=== PATIENT | female | born 1960 | race Caucasian/White ===

== ENCOUNTER → 2020-11-28 | Outpatient (CLI) | payer BC ==
[~2020-11-28] MED LIST: AMOCLA875 PO; CEPH500; IBUP800; TRAZ150T57 PO
== END ==
LOC: LAB SHORT 11:13 → LAB 11:13
DX: D48.5 Neoplasm of uncertain behavior of skin (principal)
CPT/HCPCS: 88305; 88313

== ENCOUNTER → 2020-11-28 | Outpatient (CLI) | payer BC | END | disposition home or self-care (01) | LOC: LAB SHORT 09:00 → LAB 09:00 | DX: A49.9 Bacterial infection, unspecified (principal) | CPT/HCPCS: 87070; 87077; 87147; 87186; 87205 ==

== ENCOUNTER → 2020-12-22 | Outpatient (CLI) | payer BC ==
[2020-12-22 14:42] LABS: Source, Urine Clean Catch
[2020-12-22 14:51] LABS: Squamous Epithelial Cells Few /hpf (Few); White Blood Cells, Urine 0-2 /hpf (0-5)
[2020-12-22 14:52] LABS: Bacteria Not Seen /hpf; Renal Epithelial Rare /hpf (0-Rare)
== END ==
LOC: LAB SHORT 14:40 → LAB 14:40
PROVIDERS: Physician Assistant
DX: R10.9 Unspecified abdominal pain (principal); Z88.5 Allergy status to narcotic agent; Z88.6 Allergy status to analgesic agent; Z88.8 Allergy status to other drugs, medicaments and biological substances
CPT/HCPCS: 81015; 87086

== ENCOUNTER → 2023-01-28 | Outpatient (CLI) | payer OTHER ==
[2023-01-31 14:45] LABS: 3-OH-COTININE, URN, QUANT <50 ng/mL; ANABASINE, URN, QUANT <5 ng/mL; COTININE, URN, QUANT <15 ng/mL; NICOTINE, URN, QUANT <15 ng/mL
== END ==
LOC: LAB SHORT 12:43 → LAB 12:43 → LAB FUT 01-08 15:55 → EDSTATUS 01-08 15:55
PROVIDERS: Orthopaedic Surgery
DX: Z01.812 Encounter for preprocedural laboratory examination (principal); Z87.891 Personal history of nicotine dependence
CPT/HCPCS: G0480